=== PATIENT | male | born 1995 | race Caucasian/White ===

== ENCOUNTER 2016-12-17 02:01 | Emergency (ER) | payer OTHER ==
[~2016-12-17] VITALS: Ht 180.3 cm; Wt 81.4 kg
[~2016-12-17 02:01] MED LIST: HYDR-3124 PO; IBUP-1427 PO; MULT-506 PO
[2016-12-17 02:04] VITALS: TEMP 37.1; Ht 180.3 cm; Wt 81.4 kg
[2016-12-17] MEDS ORDERED: XYLOCAINE 1%/SOD BICARB 20 ML VIAL INFIL ONE (02:30)
[2016-12-17 03:46] VITALS: BP 147/73; PULSE 89; O2SAT 96
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
== END 2016-12-17 03:47 | disposition home or self-care (01) ==
LOC: C.EDB 02:02
DX: S01.511A Laceration without foreign body of lip, initial encounter (principal); W50.0XXA Accidental hit or strike by another person, initial encounter; J45.909 Unspecified asthma, uncomplicated; F17.200 Nicotine dependence, unspecified, uncomplicated